=== PATIENT | male | born 1975 | race Caucasian/White ===

== ENCOUNTER 2019-12-23 15:09 | Emergency (ER) | payer MEDICAID, SELFPAY ==
[2019-12-23 15:32] VITALS: BP 135/93; PULSE 121; RESP 14; TEMP 37.6; O2SAT 97; BMI 21.4
[2019-12-23 16:05] LABS: Basophils % 0.3 %; Eosinophils % 0.3 %; Hematocrit 33.3 % (42.0-52.0); Hemoglobin 10.5 g/dL (11.7-16.6); Lymphocytes # 2.2 10^3/uL (0.8-4.8); Mean Corpuscular HGB Conc 31.5 g/dL (30.0-36.0); Mean Corpuscular Hemoglobin 29.7 pg (28.0-34.0); Mean Corpuscular Volume 94.1 fL (80-94); Mean Platelet Volume 9.1 fL (7.4-10.4); Monocytes # 1.4 10^3/uL (0.2-0.9); Neutrophils # 7.91 10^3/uL (1.8-7.7); Neutrophils % 68.1 %; Nucleated Red Blood Cells % 0 %; Platelet Count 287 10^3/cmm (130-400); Red Blood Count 3.54 10^6/uL (4.1-5.3); Red Cell Distribution Width 13.3 % (12.1-15.1); White Blood Count 11.6 10^3/uL (4.0-10.0)
[2019-12-23 16:26] LABS: Alanine Aminotransferase 43 U/L (0-41); Albumin Level 3.9 g/dL (3.5-5.2); Alkaline Phosphatase 97 IU/L (40-130); Anion Gap 16.4 (5-19); Aspartate Amino Transferase 26 U/L (0-40); Blood Urea Nitrogen 8 mg/dL (6-20); Calcium 9.3 mg/dL (8.5-10.5); Carbon Dioxide 27 mmol/L (22-29); Chloride 100 mmol/L (98-107); Globulin 3.2 g/dL (1.3-4.6); Glomerular Filtration Rate 146.4 mL/min (90-130); Glucose 104 mg/dL (65-115); Lipase 35 U/L (13-60); Osmolality Calculated 287 mOsm/kg (285-295); Potassium 4.4 mmol/L (3.5-5.1); Sodium 139 mmol/L (136-145); Total Bilirubin 0.3 mg/dL (0.15-1.2); Total Protein 7.1 g/dL (6.6-8.7)
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
--- NOTE | 2019-12-23 17:02 | XRR_ITS ---
PROCEDURE INFORMATION: Exam: XR Abdomen, 1 View Exam date and time: 12/23/2019 5:47 PM Age: 44 years old Clinical indication: Abdominal pain; Generalized; Additional info: Flank pain TECHNIQUE: Imaging protocol: XR of the abdomen. Views: Frontal supine view of the abdomen. 1 View. COMPARISON: No relevant prior studies available. FINDINGS: Gastrointestinal tract: Heavy fecal residue suggesting presence of constipation. Nonobstructive bowel pattern. Vasculature: Phleboliths in the true pelvis. Bones/joints: No visible acute osseous abnormality. Other findings: Potential distal right ureterolithiasis measuring 5 mm by 2 mm. XR/XR KUB portable [id number] IMPRESSION: 1. Potential distal right ureterolithiasis measuring 5 mm by 2 mm. 2. Constipation.
--- NOTE | 2019-12-23 17:03 | XRR_ITS ---
PROCEDURE INFORMATION: Exam: XR Chest, 2 Views Exam date and time: 12/23/2019 5:04 PM Age: 44 years old Clinical indication: Chest pain; On breathing; Additional info: Pain with inspiration TECHNIQUE: Imaging protocol: XR of the chest Views: 2 views. COMPARISON: No relevant prior studies available. FINDINGS: Lungs: Minimal discoid atelectasis left lung base. Pleural space: Unremarkable. No pleural effusion. No pneumothorax. Heart/Mediastinum: Unremarkable. No cardiomegaly. Bones/joints: Unremarkable. XR/XR chest 2V* [id number] IMPRESSION: Minimal discoid atelectasis left lung base.
[2019-12-23] MEDS: sodium chloride 0.9% 1,000 ML 999 ML IV (17:33)
[2019-12-23] MEDS: ketorolac 30 mg/mL INJ 15 MG IVP (17:34)
[2019-12-23 19:14] LABS: Add Urine Microscopic? YES; Bilirubin Urine Neg (Negative); Blood Urine 2+ (Negative); Glucose Urine UA Norm (Normal); Ketones Urine Negative (Negative); Leukocyte Esterase Urine Negative (Negative); Nitrate Urine Negative (Negative); Protein Urine Neg (Negative); Urine Appearance SL Hazy (CLEAR); Urine Color Yellow (Yellow); Urobilinogen Urine Norm (Negative); pH Urine 5 (5-7)
[2019-12-23 19:16] LABS: Troponin T (5th) Once 6 ng/L (0-15)
[2019-12-23 19:19] LABS: Bacteria Urine TRACE /hpf; Mucus Urine 2+ /hpf; RBC Urine 15-25 /hpf (0-2); Squamous Epithelial Cell Urine RARE /hpf (0-5)
[2019-12-23 19:20] LABS: Add Urine Culture? Yes; Calcium Oxalate Crystals Urine 0-4 /hpf; Hyaline Casts Urine 0-4 /lpf
[2019-12-23] MEDS: HYDROcodone-acetaminophen 5-325 mg Tablet 1 TAB PO (19:52)
[2019-12-23 20:11] VITALS: BP 122/69; RESP 18; O2SAT 97
== END 2019-12-23 20:13 | disposition home or self-care (01) ==
PROVIDERS: Emergency Medicine; Emergency Provider Student in an Organized Health Care Education/Training Program
DX: N23 Unspecified renal colic (principal)
CPT/HCPCS: 12345; 71046; 74018; 80053; 81001; 83690; 84484; 85025; 87086; 96361; 96374; 96375; 99283; 99284; J1885; J7030